=== PATIENT | male | born 1950 | race Caucasian/White ===

== ENCOUNTER → 2016-12-05 12:17 | Outpatient (CLI) | payer BC | END | disposition home or self-care (01) | LOC: D.NM 12:17 | DX: T18.2XXA Foreign body in stomach, initial encounter (principal) ==

== ENCOUNTER → 2016-12-12 12:24 | Outpatient (CLI) | payer BC | END | disposition home or self-care (01) | LOC: D.RAD 12:24 | DX: R13.10 Dysphagia, unspecified (principal); K22.0 Achalasia of cardia ==

== ENCOUNTER → 2017-02-13 14:00 | Outpatient (CLI) | payer BC | END | disposition home or self-care (01) | LOC: D.CT 14:00 | DX: J32.9 Chronic sinusitis, unspecified (principal); R93.8 Abnormal findings on diagnostic imaging of other specified body structures ==

== ENCOUNTER → 2017-11-03 09:25 | Outpatient (CLI) | payer BC | END | disposition home or self-care (01) | LOC: D.RAD 09:25 | DX: R93.8 Abnormal findings on diagnostic imaging of other specified body structures (principal) ==

== ENCOUNTER 2019-08-20 05:40 | Day surgery (SDC) | payer MEDICARE ==
[2019-08-19 14:59] LABS: HEMATOCRIT 47.5 % (42.0-54.0); HEMOGLOBIN 15.4 g/dL (13.5-17.5); LYMPHOCYTES 17.4 % (15-50); MCH 29.9 pg (26.0-34.0); MCHC 32.4 g/dL (31.0-37.0); MCV 92.2 fL (80.0-100.0); MEAN PLATELET VOLUME 9.7 fL (7.4-10.4); NEUTROPHILS 73.2 % (40-80); PLATELET COUNT 251 10x3/uL (130-400); RBC 5.15 10x6/uL (4.20-6.10); RDW 13.3 % (11.5-14.5); WBC 6.7 10x3/uL (4.8-10.8)
[2019-08-19 15:26] LABS: ANION GAP 11.2 mmol/L (8-16); CALCIUM 8.9 mg/dL (8.5-10.1); CREATININE - SERUM 1.1 mg/dL (0.6-1.3); POTASSIUM - SERUM 4.2 mmol/L (3.5-5.1)
[~2019-08-20] VITALS: Ht 172.7 cm; Wt 63.0 kg
--- NOTE | ~2019-08-20 | OP ---
PATIENT NAME: SARTHAK CAMARA MEDICAL RECORD: [id number] :48 LOCATION:D.OPS ADMISSION DATE: SURGEON: JIMMY BANERJEE MD DATE OF OPERATION: 08/20/2019 PREOPERATIVE DIAGNOSES: 1. Right inguinal hernia. 2. Achalasia. 3. Gastroparesis. POSTOPERATIVE DIAGNOSES: 1. Right inguinal hernia. 2. Achalasia. 3. Gastroparesis. PROCEDURE: Right inguinal hernia repair with medium PHS mesh. SURGEON: Jimmy Banerjee MD REPORT OF PROCEDURE: The patient's right groin was prepped and draped in sterile fashion. An oblique incision was made above the inguinal ligament. Electrocautery was used to dissect through the subcutaneous tissues to the external oblique fascia. This fascia was opened up to the external ring using electrocautery. The spermatic cord was elevated and a [place] was placed around it. The ilioinguinal nerve was found and high ligated. A direct hernia defect was found, which was fat containing. We were able to open up this defect and opened the preperitoneal space of Retzius. We then inserted a medium PHS mesh, which was sutured down on all 4 sides using multiple interrupted 0 Vicryl. The mesh appeared to rest in good position. There was no sign of any active bleeding. We irrigated out the wound with normal saline. The external oblique fascia was closed with running 2-0 Vicryl, Jessy's was closed with interrupted 3-0 Vicryl and the skin was closed with running subcutaneous 5-0 Monocryl. A total of 10 mL of 0.25% Marcaine with epinephrine was infused into the surrounding tissues and the wound was dressed appropriately. COMPLICATIONS: None. CONDITION: Stable. ANESTHESIA: General endotracheal and local. BLOOD LOSS: Minimal. TRANSINT:[id number] Voice Confirmation ID: [id number] DOCUMENT ID: [id number] JIMMY BANERJEE MD CC: BIPIN LLOYD DO [id number] DICTATION DATE: 08/20/19831 QUALITY ASSURANCE ASSISTANT: 08/20/19922 [facility] [address] [id number]
[~2019-08-20 05:40] MED LIST: ERY-TAB250 MG; LEXAPRO10 MG PO
[2019-08-20 06:12] VITALS: BP 180/103; Ht 172.7 cm; Wt 63.0 kg
[2019-08-20] MEDS ORDERED: HYDROCODON-ACE1 EA10 PO (08:28)
--- NOTE | 2019-08-20 10:15 | NUR ---
DISCHARGE INSTRUCTIONS REVIEWED WITH PATIENT AND SPOUSE. [id number] PATIENT DISCHARGED HOME VIA WHEELCHAIR TO PRIVATE VEHICLE WITH SPOUSE
== END 2019-08-20 10:17 | disposition home or self-care (01) ==
LOC: D.OPS 05:40 → D.PAN 07:30 → D.OPS 07:30
PROVIDERS: ATTEND Surgery
DX: K40.90 Unilateral inguinal hernia, without obstruction or gangrene, not specified as recurrent (principal); K22.0 Achalasia of cardia; K31.84 Gastroparesis